=== PATIENT | female | born 1935 | race Caucasian/White ===

== ENCOUNTER 2016-12-16 10:17 | Outpatient (CLI) | payer MEDICARE, BC ==
[~2016-12-16 10:17] MED LIST: ACET325T53 PO; AMLO1TAB14 PO; ATEN50TA PO; DIGO125T PO; LEVO137T24 PO; LEVO500T15 PO
[2016-12-16 11:30] LABS: THYROID STIMULATING HORMONE 4.587 uIU/mL (0.358-3.74)
== END 2016-12-16 23:59 | disposition home or self-care (01) ==
LOC: US 10:17
PROVIDERS: ATTEND Internal Medicine Cardiovascular Disease
DX: E03.9 Hypothyroidism, unspecified (principal)
CPT/HCPCS: 36415; 76536-TC; 84436-TC; 84443-TC

== ENCOUNTER 2017-02-18 08:11 | Outpatient (CLI) | payer MEDICARE, BC ==
[2017-02-18 09:03] LABS: APPEARANCE,URINE SL CLOUDY (CLEAR); BILIRUBIN,URINE NEGATIVE (NEGATIVE); BLOOD, URINE NEGATIVE Ery/uL (NEGATIVE); COLOR,URINE YELLOW (YELLOW); KETONES,URINE NEGATIVE (NEGATIVE); LEUKOCYTE ESTERASE ,URINE NEGATIVE (NEGATIVE); NITRITE, URINE NEGATIVE (NEGATIVE); PROTEIN,URINE TRACE mg/dl (NEGATIVE); UGLUCOSE NEGATIVE (NEGATIVE); UROBILINOGEN,URINE 0.2 EU/dL (0.2)
[2017-02-18 09:04] LABS: BASOPHILS % (AUTO) 0.3 % (0.0-2.0); EOSINOPHILS # (AUTO) 0.2 /CMM (0.0-0.7); EOSINOPHILS % (AUTO) 2.2 % (0.0-6.0); HEMATOCRIT 39 % (33-45); HEMOGLOBIN 12.9 g/dL (11.5-14.8); LYMPHOCYTES # (AUTO) 2.8 /CMM (0.8-4.8); LYMPHOCYTES % (AUTO) 32.8 % (20.0-44.0); MEAN CORPUSCULAR HEMOGLOBIN 29 PG (26.0-33.0); MEAN CORPUSCULAR HGB CONC 33 g/dl (31.0-36.0); MEAN CORPUSCULAR VOLUME 90 fL (82-100); MONOCYTES # (AUTO) 0.6 /CMM (0.1-1.30); NEUTROPHILS # (AUTO) 4.9 /CMM (1.8-8.9); NEUTROPHILS % (AUTO) 57.7 % (43.0-81.0); PLATELET COUNT (AUTO) 257 /CMM (150-450); RDW COEFFICIENT OF VARIATION 14.7 (11.5-15.0); RED BLOOD CELL COUNT(AUTO) 4.38 MIL/uL (4.0-5.2); WHITE BLOOD COUNT (AUTO) 8.4 K/uL (4.3-11.0)
[2017-02-18 09:19] LABS: ADD URINE CULTURE NO; BACTERIA,URINE Rare /HPF (None Seen); HYALINE CASTS, URINE Rare /LPF (None Seen); RBC,URINE 0-2 /HPF (0-2); SQUAMOUS EPITHELIAL CELL,UR Few /HPF (None Seen); WBC,URINE 0-2 /HPF (0-3)
[2017-02-18 09:26] LABS: ALBUMIN 3.6 g/dL (3.4-5.0); BILIRUBIN,TOTAL 0.5 mg/dL (0.2-1.0); CALCIUM, SERUM 9.1 mg/dL (8.5-10.1); CREATININE 1.3 mg/dL (0.6-1.3); MAGNESIUM 1.7 mg/dL (1.8-2.4); POTASSIUM 3.9 mmol/L (3.5-5.1)
== END 2017-02-18 23:59 | disposition home or self-care (01) ==
LOC: LAB 08:11
PROVIDERS: ATTEND Internal Medicine
DX: E11.9 Type 2 diabetes mellitus without complications (principal); I10 Essential (primary) hypertension
CPT/HCPCS: 36415; 80053-TC; 80061-TC; 81000-TC; 83735-TC; 85025-TC

== ENCOUNTER 2017-07-16 08:12 | Outpatient (CLI) | payer MEDICARE, BC ==
[2017-07-16 08:59] LABS: DIGOXIN 0.53 ng/mL (0.90-2.00)
[2017-07-16 09:05] LABS: ALANINE AMINOTRANSFERASE 28 U/L (12-78); ALBUMIN 3.6 g/dL (3.4-5.0); ALKALINE PHOSPHATASE 47 U/L (46-116); ASPARTATE AMINOTRANSFERASE 19 U/L (15-37); BILIRUBIN,TOTAL 0.4 mg/dL (0.2-1.0); CALCIUM, SERUM 9.1 mg/dL (8.5-10.1); CARBON DIOXIDE 28 mmol/L (21-32); CHLORIDE 104 mmol/L (98-107); CREATININE 1.2 mg/dL (0.6-1.3); GLUCOSE 166 mg/dL (74-106); POTASSIUM 4.2 mmol/L (3.5-5.1); SODIUM SERUM 140 mmol/L (136-145); UREA NITROGEN, BLOOD 16 mg/dL (7-18)
[2017-07-16 14:16] LABS: THYROID STIMULATING HORMONE 8.705 uIU/mL (0.358-3.74)
== END 2017-07-16 23:59 | disposition home or self-care (01) ==
LOC: LAB 08:12
PROVIDERS: ATTEND Internal Medicine Cardiovascular Disease
DX: I48.91 Unspecified atrial fibrillation (principal); E03.9 Hypothyroidism, unspecified; I10 Essential (primary) hypertension; R53.83 Other fatigue
CPT/HCPCS: 36415; 80053-TC; 80162-TC; 84443-TC

== ENCOUNTER 2019-10-31 15:52 | Emergency (ER) | payer MEDICARE, BC ==
[~2019-10-31] VITALS: Ht 167.6 cm; Wt 85.7 kg
[~2019-10-31 15:52] MED LIST changes: -ACET325T53 PO; -AMLO1TAB14 PO; +AMLO1TAB39 PO; -ATEN50TA PO; +CARV3.12 PO; +CHLO25TA2 PO; -DIGO125T PO; +HYDR-4076 PO; +LEVO100T9 PO; -LEVO137T24 PO; -LEVO500T15 PO; +METF-440 PO; +SITA1TAB6 PO
--- NOTE | 2019-10-31 16:00 | NUR ---
PT BIB RA WITH A C/O LLE PAIN. PT STATED THAT IT WAS SUDDEN ONSET AND DENIES TRAUMA. PT IS AA&O X4. PT IS NON AMBULATORY DUE TO PAIN. PT WAS PLACED ON THE MONITOR AND CONTINUOUS PULSE OX. PT CHANGED INTO A GOWN AND PT'S PANTS WERE REMOVED. NO REDNESS OR EDEMA NOTED.
--- NOTE | 2019-10-31 16:15 | NUR ---
DR PATIÑO IS AT THE BEDSIDE WITH AN ULTRASOUND CHECKING PT'S LLE.
--- NOTE | 2019-10-31 17:10 | NUR ---
US TECH IS AT THE BEDSIDE.
--- NOTE | 2019-10-31 17:20 | NUR ---
PT PLACED ON A BEDPAN. APPROX 300 ML YELLOW URINE OUTPUT NOTED.
--- NOTE | 2019-10-31 17:38 | NUR ---
US FINISHED AT THE BEDSIDE.
--- NOTE | 2019-10-31 17:45 | NUR ---
PT AMBULATED TO THE BATHROOM WITH A SLOW STEADY GAIT. RADHA, EMT, WENT WITH THE PT IN CASE SHE NEEDED ASSISTANCE.
--- NOTE | 2019-10-31 17:50 | NUR ---
PT C/O LOWER BACK PAIN WITH AMBULATION. MD NOTIFIED.
--- NOTE | 2019-10-31 18:00 | NUR ---
called central supply for a walker.
[2019-10-31] MEDS ORDERED: IBUPROFEN 600 MG TABLET PO ONE ×2 (18:18→18:30)
--- NOTE | 2019-10-31 18:50 | NUR ---
Patient discharged to home in stable condition. Written and verbal after care instructions given. Patient verbalizes understanding of instruction. VSS.
--- NOTE | 2019-10-31 18:50 | NUR ---
PT AMBULATED WITH A WALKER TO THE BATHROOM. PT WENT TO THE CAR VIA .
[2019-10-31 19:07] VITALS: BP 134/75
== END 2019-10-31 19:08 | disposition home or self-care (01) ==
LOC: ER 16:05
DX: M79.662 Pain in left lower leg (principal); I10 Essential (primary) hypertension; E11.9 Type 2 diabetes mellitus without complications; E03.9 Hypothyroidism, unspecified; I48.91 Unspecified atrial fibrillation; Z79.899 Other long term (current) drug therapy; Z79.84 Long term (current) use of oral hypoglycemic drugs
CPT/HCPCS: 93971-TC

== ENCOUNTER 2021-01-28 21:19 | Emergency (ER) | payer MEDICARE, BC ==
--- NOTE | 2021-01-28 21:57 | NUR ---
CALLED FOR TRIAGE NO ANSWER
== END 2021-01-28 22:00 | disposition left against medical advice (07) ==
LOC: ER 21:23
DX: Z53.21 Procedure and treatment not carried out due to patient leaving prior to being seen by health care provider (principal)

== ENCOUNTER 2022-03-04 01:23 | Inpatient (IN) | payer BC, MEDICARE ==
[~2022-03-04] VITALS: Ht 162.6 cm; Wt 76.2 kg
--- NOTE | 2022-03-04 01:38 | NUR ---
PATIENT [id number] FROM [facility] C/O LOW 02 STAT ON RA. PATIENT IS A/O X 1, RR LABORED, 86% RA NOTED. PATIENT PLACED ON 4L NC 93%. PATIENT TAKEN TO ER BED 08. PATIENT CONNECTED TO CARDIAC AND POX MONITOR. TEMP NOTED AT 100.8.
--- NOTE | 2022-03-04 01:39 | NUR ---
F/C INSERTED DEGREE CLERK; DRAINING YELLOW URINE WELL.
--- NOTE | 2022-03-04 01:39 | NUR ---
GTUBE INTACT; PT MAINTAINED NPO & ASPIRATION PRECAUTIONS IN PLACE.
[2022-03-04] MEDS ORDERED: PIPERACILLIN /TAZOBACTAM 3.375 G VIAL IV ONE (01:42)
--- NOTE | 2022-03-04 01:42 | NUR ---
R HAND #20G S/L; PATENT AND INTACT. BLOOD AND URINE COLLECTED AND SENT TO LAB
--- NOTE | 2022-03-04 01:47 | NUR ---
COVID ANTIGEN SWAB COLLECTED AND SENT TO LAB
[2022-03-04] MEDS ORDERED: AZTREONAM 1 G VIAL ONE (01:49)
[2022-03-04] MEDS ORDERED: VANCOMYCIN 1 GM VIAL ONE (01:49)
[2022-03-04] MEDS ORDERED: DILTIAZEM HCL 25 MG IV ONE ×4 (01:50→23:02)
[2022-03-04 02:00] LABS: BASOPHILS % (AUTO) 0.1 % (0.0-2.0); EOSINOPHILS % (AUTO) 1.4 % (0.0-6.0); HEMATOCRIT 27 % (33-45); HEMOGLOBIN 8.7 g/dL (11.5-14.8); LYMPHOCYTES # (AUTO) 1.5 K/uL (0.8-4.8); LYMPHOCYTES % (AUTO) 14.8 % (20.0-44.0); MEAN CORPUSCULAR HGB CONC 32 g/dl (31.0-36.0); MEAN CORPUSCULAR VOLUME 93 fL (82-100); MONOCYTES # (AUTO) 0.8 K/uL (0.1-1.30); MONOCYTES % (AUTO) 8.6 % (2.0-12.0); NEUTROPHILS # (AUTO) 7.3 K/uL (1.8-8.9); NEUTROPHILS % (AUTO) 75.1 % (43.0-81.0); PLATELET COUNT (AUTO) 508 K/uL (150-450); WHITE BLOOD COUNT (AUTO) 9.8 K/uL (4.3-11.0)
[2022-03-04] MEDS ORDERED: PIPERACILLIN /TAZOBACTAM 3.375 G in IV D5W 50 ML IV ONE (02:00)
[2022-03-04] MEDS ORDERED: IV NS 0.9% 1,000 ML BAG IV ONE (02:00)
[2022-03-04] MEDS ORDERED: AZTREONAM 2 G in IV NS 0.9% 100 ML IV ONE (02:00)
[2022-03-04] MEDS ORDERED: VANCOMYCIN 1 GM in IV D5W 250 ML IV ONE (02:00)
[2022-03-04] MEDS ORDERED: DILTIAZEM HCL 50 MG IV IV ONE (02:00)
[2022-03-04 02:01] LABS: BILIRUBIN,URINE NEGATIVE (NEGATIVE); COLOR,URINE YELLOW (YELLOW); LEUKOCYTE ESTERASE ,URINE MODERATE (NEGATIVE); NITRITE, URINE NEGATIVE (NEGATIVE); PROTEIN,URINE 30 mg/dl (NEGATIVE); UGLUCOSE NEGATIVE (NEGATIVE); UROBILINOGEN,URINE 0.2 EU/dL (0.2)
[2022-03-04 02:25] LABS: CALCIUM, SERUM 8.5 mg/dL (8.5-10.1); CARBON DIOXIDE 30 mmol/L (21-32); CHLORIDE 104 mmol/L (98-107); CREATININE 1.2 mg/dL (0.6-1.3); POTASSIUM 5.1 mmol/L (3.5-5.1); SODIUM SERUM 139 mmol/L (136-145)
[2022-03-04 02:31] LABS: ALANINE AMINOTRANSFERASE 72 U/L (12-78); ALBUMIN 1.7 g/dL (3.4-5.0); ALKALINE PHOSPHATASE 110 U/L (46-116); ASPARTATE AMINOTRANSFERASE 54 U/L (15-37); BILIRUBIN,DIRECT 0.1 mg/dL (0.0-0.2); BILIRUBIN,TOTAL 0.3 mg/dL (0.2-1.0); TOTAL PROTEIN, SERUM 7.2 g/dL (6.4-8.2)
--- NOTE | 2022-03-04 02:31 | NUR ---
GLUCOSE 392
[2022-03-04 02:33] LABS: GLUCOSE 392 mg/dL (74-106); UREA NITROGEN, BLOOD 68 mg/dL (7-18)
--- NOTE | 2022-03-04 02:45 | NUR ---
INITIATED CARDIZEM DRIP @ 5MG/HR TO LAC #20G S/L BP 126/69, HR 103 AFIB. PT TOLERATING SIMPLE MASK @ 6LPM AT 95%. WILL CONTINUE TO MONITOR.
[2022-03-04] MEDS: DILTIAZEM HCL IV 125 MG in IV NS 0.9% 100 ML IV PRN ×2 (02:46→06:00)
[2022-03-04 03:47] LABS: BACTERIA,URINE Many /HPF (None Seen); RBC,URINE 81-100 /HPF (0-2); SQUAMOUS EPITHELIAL CELL,UR Few /HPF (None Seen); WBC,URINE 51-80 /HPF (0-3)
--- NOTE | 2022-03-04 05:09 | NUR ---
RECIEVED BED 115-1
--- NOTE | 2022-03-04 05:23 | NUR ---
MRSA SWAB COLLECTED AND SENT TO LAB. PATIENT'S BELONGINGS LIST DONE.
--- NOTE | 2022-03-04 05:58 | NUR ---
TITRATED CARDIZEM DRIP @ 10MG/HR TO LAC #20G S/L BP 143/71, HR 120 AFIB. PT TOLERATING O2 N/C @ 4LPM AT 98%. WILL CONTINUE TO MONITOR. BM NOTED. ADLS DONE & REPOSITIONED PT. PT KEPT CLEAN AND DRY.
[2022-03-04] MEDS: ENOXAPARIN SODIUM 40 MG/0.4 ML DISP.SYRIN SQ SCH (06:00)
[2022-03-04] MEDS ORDERED: ONDANSETRON HCL/PF 4 MG/2 ML VIAL IVP PRN (06:00)
[2022-03-04] MEDS ORDERED: DEXTROSE 50%-WATER 50 ML DISP.SYRIN IV PRN (06:00)
--- NOTE | 2022-03-04 06:12 | NUR ---
REPORT GIVEN TO RODRIGO HORNER RN FOR KIYA
[2022-03-04] MEDS ORDERED: CEFTRIAXONE 2 G in IV D5W 100 ML IV SCH (07:00)
[2022-03-04] MEDS ORDERED: NA P133E RC (07:13)
[2022-03-04] MEDS ORDERED: ATOR40TA GT (07:13)
[2022-03-04] MEDS ORDERED: MODAFINIL GT (07:13)
[2022-03-04] MEDS ORDERED: MAGN400O6 GT (07:13)
[2022-03-04] MEDS ORDERED: ACET-868 GT (07:13)
[2022-03-04] MEDS ORDERED: BISA10SU11 RC (07:13)
[2022-03-04] MEDS ORDERED: METO25TA20 GT (07:13)
[2022-03-04] MEDS ORDERED: ARGI1POW13 GT (07:13)
[2022-03-04] MEDS ORDERED: INSU100V7 SQ (07:13)
[2022-03-04] MEDS ORDERED: ASPI-1169 GT (07:13)
[2022-03-04] MEDS ORDERED: CLON0.1T GT (07:13)
[2022-03-04] MEDS ORDERED: ASCO-352 GT (07:13)
[2022-03-04] MEDS ORDERED: ZINC1CAP3 GT (07:13)
[2022-03-04] MEDS ORDERED: INSU100V27 SQ (07:13)
[2022-03-04] MEDS ORDERED: NUTR250L62 GT (07:13)
[2022-03-04] MEDS ORDERED: LISI20TA30 GT (07:13)
[2022-03-04] MEDS ORDERED: MULT-447 GT (07:13)
[2022-03-04] MEDS ORDERED: APIX2.5T GT (07:13)
[2022-03-04] MEDS ORDERED: DILT30TA14 GT (07:13)
[2022-03-04] MEDS ORDERED: AMIN30LI2 GT (07:13)
--- NOTE | 2022-03-04 07:19 | NUR ---
PT TRANPORTED TO TELE BED WITH ACLS PROTOCOLS IN PLACE. PT RECIEVED BY RN SOON.
--- NOTE | 2022-03-04 07:20 | NUR ---
RN NOTE PATIENT ARRIVED TO UNIT.
[2022-03-04] MEDS ORDERED: LEVOTHYROXINE SODIUM 100 MCG TABLET PO SCH (07:30)
--- NOTE | 2022-03-04 07:42 | NUR ---
RN OPENING NOTE RECEIVED PATIENT RESTING IN BED, RESPONSIVE TO LIGHT PAIN STIMULI, OPENS EYES. ON NC 4L WITH NOT SIGNS OF SOB OR DISTRESS. PATIENT IS ON CARDIZEM DRIP CURRENTLY AT 10MG.HR. PENDING EVALUATION FROM PROVIDER. SAFETY MEASURE IN PLACE, CALL LIGHT WITHIN REACH BED LOCKED IN THE LOWEST POSITION 2 SIDE RAILS UP.
[2022-03-04 08:00] VITALS: BP 131/57
[2022-03-04] MEDS ORDERED: CARVEDILOL 3.125 MG TABLET PO SCH (09:00)
[2022-03-04] MEDS ORDERED: LOSARTAN POTASSIUM 50 MG TABLET PO SCH (09:00)
[2022-03-04] MEDS ORDERED: AMLODIPINE BESYLATE 5 MG TABLET PO SCH (09:00)
[2022-03-04] MEDS: BLOOD SUGAR DIAGNOSTIC 1 EACH STRIP IN SCH ×4 (10:38→23:17)
[2022-03-04] MEDS: INSULIN REGULAR, HUMAN 100 UNIT/ML 3 ML VIAL SQ PRN ×4 (10:39→23:28)
[2022-03-04 11:14] LABS: THYROID STIMULATING HORMONE 10.847 uIU/mL (0.358-3.74)
[2022-03-04 11:15] LABS: IRON, SERUM 37 ug/dl (50-175); TOTAL IRON BINDING CAPACITY 241 ug/dl (250-450)
[2022-03-04 11:34] LABS: FERRITIN 145 ng/mL (8-388)
[2022-03-04 11:44] LABS: MAGNESIUM 2.4 mg/dL (1.8-2.4)
[2022-03-04 12:00] VITALS: BP 142/77
[2022-03-04] MEDS ORDERED: GLUCERNA 1.5 1,000 ML BOTTLE NG PRN (12:00)
[2022-03-04] MEDS: DILTIAZEM HCL IV 125 MG in IV NS 0.9% 100 ML IV SCH ×2 (12:15→23:16)
[2022-03-04] MEDS: PIPERACILLIN /TAZOBACTAM 3.375 G in IV D5W 50 ML IV SCH ×3 (13:04→23:25)
[2022-03-04] MEDS: IV NS 0.9% 1,000 ML IV PRN (13:04)
[2022-03-04] MEDS ORDERED: DIGOXIN INJ 0.5 MG/2 ML AMPUL IV ONE ×3 (13:30→19:30)
[2022-03-04] MEDS ORDERED: GLUCERNA 1.2 1,000 ML BOTTLE NG PRN (13:30)
--- NOTE | 2022-03-04 13:30 | NUR ---
RN NOTE INFORMED DR FORBES PATIENTS HR IS 130-140BPM. PATIENT ON CARDIZEM 5ML/HR. RECEIVED ORDER FOR DIGOXIN 0.25IV NOW AND Q6HR X 3 DOSES. ORDERS PLACED.
[2022-03-04] MEDS: DIGOXIN INJ 0.5 MG/2 ML AMPUL IV SCH ×2 (13:58→19:56)
[2022-03-04] MEDS: PROSOURCE / PROSTAT (PYXIS) 30 ML UDC GT SCH ×2 (14:09→17:22)
[2022-03-04] MEDS: GLUCERNA 1.2 1,000 ML BOTTLE NG PRN (15:16)
[2022-03-04 16:00] VITALS: BP 100/56
--- NOTE | 2022-03-04 18:53 | NUR ---
RN CLOSING NOTE PATIENT RESTING IN BED, RESPONSIVE TO LIGHT PAIN STIMULI, OPENS EYES. ON NC 3L WITH NOT SIGNS OF SOB OR DISTRESS. PATIENT IS ON CARDIZEM DRIP CURRENTLY AT 5MG/HR AND NS RUINING. ON LEFT UPPER ARM MIDLINE. SAFETY MEASURE IN PLACE, CALL LIGHT WITHIN REACH BED LOCKED IN THE LOWEST POSITION 2 SIDE RAILS UP. WILL ENDORSE TO NIGHT NURSE FOR KIYA.
[2022-03-04 20:00] VITALS: BP 133/75
--- NOTE | 2022-03-04 20:00 | NUR ---
SIRI RN NOTE PT IN BED AWAKE, NON VERBAL. NO SOB, NO DISTRESS OR DISCOMFORT NOTED. NO S/S OF PAIN NOTED. ON O2 3L VIA N/C O2 SAT 98%. ON TELE HR 104 A FIB CONTROLLED OCC. PVC'S. F/C INTACT AND PATENT DRAINING YELLOWISH COLOR URINE. GTF GLUCERNA INFUSING AT 30 ML/HR, 0 ML RESIDUAL NOTED. GERRY MIDLINE # 18 G LAT AC #18 G, AND RT HAND #18 G SL INTACT AND PATENT, NO S/S OF INFILTRATION NOTED. CARDIZEM INFUSING AT 5 MG/HR AND NS @ 75 ML/HR INFUSING WELL. ALL NEEDS ATTENDED, KEPT HER DRY AND CLEAN. REPOSITION HER Q2H, SIDE RAILS UP X 3 AND CALL LIGHT WITHIN REACH. VSS. CONTINUE TO MONITOR HER.
[2022-03-05] VITALS: BP 145/76
[2022-03-05] MEDS: DIGOXIN INJ 0.5 MG/2 ML AMPUL IV SCH (02:25)
[2022-03-05 04:00] VITALS: BP 139/62
[2022-03-05] MEDS: IV NS 0.9% 1,000 ML IV PRN ×2 (04:31→20:57)
[2022-03-05] MEDS: PIPERACILLIN /TAZOBACTAM 3.375 G in IV D5W 50 ML IV SCH ×4 (05:52→23:25)
[2022-03-05] MEDS: ENOXAPARIN SODIUM 40 MG/0.4 ML DISP.SYRIN SQ SCH (05:56)
--- NOTE | 2022-03-05 06:33 | NUR ---
SIRI RN NOTE PT IN BED ASLEEP, AROUSABLE. NO DISTRESS OR DISCOMFORT NOTED. IVF INFUSING WELL, NO S /S OF INFILTRATION NOTED. ALL NEEDS ATTENDED. KEPT HER DRY AND CLEAN. REPOSITION HER Q2H, KEPT HER DRY AND CLEAN. WILL ENDORSE TO DAY SHIFT NURSE FOR CONTINUE TO CARE.
--- NOTE | 2022-03-05 07:15 | NUR ---
RN OPENING NOTE RECEIVED PATIENT RESTING IN BED, RESPONSIVE TO LIGHT PAIN STIMULI, OPENS EYES. ON NC 3L WITH NO SIGNS OF SOB OR DISTRESS. PATIENT IS ON CARDIZEM DRIP CURRENTLY AT 5MG/HR. SAFETY MEASURES IN PLACE, CALL LIGHT WITHIN REACH BED LOCKED IN THE LOWEST POSITION 2 SIDE RAILS UP. ON G TUBE FEEDING GLUCERNA AT 30ML/HR AND TOLERATING WELL EVIDENCED BY LOW RESIDUAL. GERRY MIDLINE IN PLACE . LEFT 18 GAUGE AC IV IN PLACE, ALONG WITH RIGHT 18 GAUGE HAND IV NO SIGNS OF INFILTRATION. WILL CONTINUE PLAN OF CARE AND ANTICIPATE NEEDS.
[2022-03-05 07:16] LABS: BILIRUBIN,TOTAL 0.4 mg/dL (0.2-1.0); CALCIUM, SERUM 8.5 mg/dL (8.5-10.1); MAGNESIUM 2.2 mg/dL (1.8-2.4); PHOSPHORUS 4.7 mg/dL (2.5-4.9); POTASSIUM 4.5 mmol/L (3.5-5.1); TOTAL PROTEIN, SERUM 6.1 g/dL (6.4-8.2)
[2022-03-05 07:21] LABS: ALBUMIN 1.4 g/dL (3.4-5.0)
[2022-03-05 07:48] LABS: BASOPHILS % (AUTO) 0.2 % (0.0-2.0); EOSINOPHILS % (AUTO) 3.4 % (0.0-6.0); HEMATOCRIT 23 % (33-45); HEMOGLOBIN 7.6 g/dL (11.5-14.8); LYMPHOCYTES # (AUTO) 1.4 K/uL (0.8-4.8); LYMPHOCYTES % (AUTO) 17.4 % (20.0-44.0); MEAN CORPUSCULAR HGB CONC 33 g/dl (31.0-36.0); MEAN CORPUSCULAR VOLUME 91 fL (82-100); MONOCYTES # (AUTO) 0.9 K/uL (0.1-1.30); MONOCYTES % (AUTO) 10.7 % (2.0-12.0); NEUTROPHILS # (AUTO) 5.5 K/uL (1.8-8.9); NEUTROPHILS % (AUTO) 68.3 % (43.0-81.0); PLATELET COUNT (AUTO) 430 K/uL (150-450); RED BLOOD CELL COUNT(AUTO) 2.54 MIL/uL (4.0-5.2); WHITE BLOOD COUNT (AUTO) 8.1 K/uL (4.3-11.0)
[2022-03-05 08:00] VITALS: BP 128/67
[2022-03-05] MEDS: INSULIN REGULAR, HUMAN 100 UNIT/ML 3 ML VIAL SQ PRN ×4 (08:05→21:23)
[2022-03-05] MEDS: BLOOD SUGAR DIAGNOSTIC 1 EACH STRIP IN SCH ×4 (08:12→21:17)
[2022-03-05] MEDS: PROSOURCE / PROSTAT (PYXIS) 30 ML UDC GT SCH ×3 (08:12→17:39)
[2022-03-05] MEDS ORDERED: Z GUARD REMEDY 4 OZ OINT TP PRN (08:30)
--- NOTE | 2022-03-05 08:35 | NUR ---
WOUND CARE CONSULT: PT PRESENTS WITH SACRAL UNSTAGEABLE PRESSURE ULCER WHICH EXTENDS TO BILATERAL BUTTOCKS, PRESENT ON ADMISSION. PT ALSO NOTED TO HAVE RT HEEL SCAR, PRESENT ON ADMISSION. RECOMMENDATIONS MADE FOR SKIN PROTECTION. DISCUSSED WITH NURSING STAFF. SURGICAL CONSULT CALLED TO DR WALLIS. FIRST STEP [facility] IS ON ORDER. IN AGREEMENT WITH PLAN OF CARE. Addendum: 03/05/22 at 0836 by IVY MORALES Amended: Links added. Addendum: 03/05/22 at 0838 by IVY KHANU ADDITIONAL: LEFT CLAVICLE WOUND ALSO NOTED TO BE PRESENT ON ADMISSION. SURGICAL CONSULT IN PLACE.
[2022-03-05] MEDS: CARVEDILOL 12.5 MG TABLET PO SCH ×2 (09:37→20:51)
[2022-03-05] MEDS: Z GUARD REMEDY 4 OZ OINT TP SCH (09:45)
[2022-03-05 12:00] VITALS: BP 121/61
[2022-03-05] MEDS: DIGOXIN 0.25 MG TABLET PO SCH (12:12)
[2022-03-05] MEDS ORDERED: SILVER NITRATE APPLICATOR 1 EA BOX TP SCH (14:30)
[2022-03-05] MEDS ORDERED: LIDOCAINE 1% INJ 50 ML MDV IJ ONE (14:30)
[2022-03-05] MEDS: DAKINS QUARTER STRENGTH (0.125%) 480 ML BOTTLE TOP SCH (15:30)
[2022-03-05] MEDS: GLUCERNA 1.2 1,000 ML BOTTLE NG PRN (15:42)
[2022-03-05 16:00] VITALS: BP 118/59
[2022-03-05] MEDS: VANCOMYCIN HCL 0.75 GM in IV D5W 250 ML IV SCH (16:43)
--- NOTE | 2022-03-05 19:19 | NUR ---
RN CLOSING NOTE PATIENT RESTING IN BED, RESPONSIVE TO LIGHT PAIN STIMULI, OPENS EYES. ON NC 3L WITH NO SIGNS OF SOB OR DISTRESS. SAFETY MEASURES IN PLACE, CALL LIGHT WITHIN REACH BED LOCKED IN THE LOWEST POSITION 2 SIDE RAILS UP. ON G TUBE FEEDING GLUCERNA AT 30ML/HR AND TOLERATING WELL EVIDENCED BY LOW RESIDUAL. GERRY MIDLINE IN PLACE . LEFT 18 GAUGE AC IV IN PLACE, ALONG WITH RIGHT 18 GAUGE HAND IV NO SIGNS OF INFILTRATION. WILL ENDORSE TO ONCOMING NURSE FOR KIYA.
--- NOTE | 2022-03-05 19:30 | NUR ---
FARMWORKER DAIRY OPENING NOTE RECEIVED PATIENT IN BED, NON VERBAL. RESPONSIVE TO LIGHT PAIN STIMULI, OPENS EYES. PT ON O2 NC 3L WITH NO SIGNS OF SOB OR ACUTE DISTRESS NOTED AT THIS TIME. ON TELE MONITOR SHOWING A-FIB CONTROLLED WITH OCCASIONAL PVCs. IV ACCESS NOTED AT GERRY MIDLINE, LEFT AC 18 GAUGE AND RIGHT HAND 18 GAUGE WITH NO SIGNS OF INFILTRATION. ON G TUBE FEEDING, GLUCERNA AT 30ML/HR AND TOLERATING WELL. ALL SAFETY MEASURES IN PLACE, CALL LIGHT WITHIN REACH. BED LOCKED IN LOWEST POSITION, 2 SIDE RAILS UP AND BED ALARM ON. WILL CONTINUE TO MONITOR THE PT.
[2022-03-05 20:00] VITALS: BP 141/68
[2022-03-06] VITALS: BP 143/67
[2022-03-06] MEDS: VANCOMYCIN HCL 0.75 GM in IV D5W 250 ML IV SCH ×2 (03:36→15:38)
[2022-03-06 04:00] VITALS: BP 144/65
[2022-03-06] MEDS: PIPERACILLIN /TAZOBACTAM 3.375 G in IV D5W 50 ML IV SCH ×4 (05:04→23:26)
[2022-03-06] MEDS: ENOXAPARIN SODIUM 40 MG/0.4 ML DISP.SYRIN SQ SCH (05:38)
--- NOTE | 2022-03-06 05:38 | NUR ---
RN NOTE PT IS SCHEDULED FOR WOUND DEBRIDEMENT TODAY. WITHHELD LOVENOX DUE 6AM TODAY PER CHARGE NURSE RODRIGO'S ADVICE. HGB IS 7.6.
[2022-03-06 06:49] LABS: BASOPHILS % (AUTO) 0.4 % (0.0-2.0); EOSINOPHILS % (AUTO) 3.9 % (0.0-6.0); HEMATOCRIT 24 % (33-45); HEMOGLOBIN 7.9 g/dL (11.5-14.8); LYMPHOCYTES # (AUTO) 1.4 K/uL (0.8-4.8); LYMPHOCYTES % (AUTO) 17.7 % (20.0-44.0); MEAN CORPUSCULAR HGB CONC 33 g/dl (31.0-36.0); MEAN CORPUSCULAR VOLUME 93 fL (82-100); MONOCYTES # (AUTO) 0.7 K/uL (0.1-1.30); MONOCYTES % (AUTO) 9.2 % (2.0-12.0); NEUTROPHILS # (AUTO) 5.3 K/uL (1.8-8.9); NEUTROPHILS % (AUTO) 68.8 % (43.0-81.0); PLATELET COUNT (AUTO) 439 K/uL (150-450); RED BLOOD CELL COUNT(AUTO) 2.62 MIL/uL (4.0-5.2); WHITE BLOOD COUNT (AUTO) 7.7 K/uL (4.3-11.0)
--- NOTE | 2022-03-06 06:56 | NUR ---
MMA FIGHTER CLOSING NOTE NO SIGNIFICANT CHANGE THROUGHOUT THE SHIFT. PATIENT IN BED, SLEEPING MOST OF THE TIME, NON VERBAL. RESPONSIVE TO LIGHT PAIN STIMULI, OPENS EYES. PT ON O2 NC 3L WITH NO SIGNS OF SOB OR ACUTE DISTRESS NOTED. ON TELE MONITOR SHOWING A-FIB CONTROLLED WITH OCCASIONAL PVCs. IV ACCESS NOTED AT GERRY MIDLINE, LEFT AC 18 GAUGE AND RIGHT HAND 18 GAUGE WITH NO SIGNS OF INFILTRATION. ON G TUBE FEEDING, GLUCERNA AT 30ML/HR AND TOLERATING WELL. ALL DUE MEDS GIVEN. ALL NEEDS ATTENDED TO. ALL SAFETY MEASURES IMPLEMENTED. CALL LIGHT WITHIN REACH. BED LOCKED IN LOWEST POSITION, 2 SIDE RAILS UP AND BED ALARM ON. WILL ENDORSE TO AM SHIFT NURSE FOR KIYA.
[2022-03-06 07:15] LABS: BILIRUBIN,TOTAL 0.4 mg/dL (0.2-1.0); CREATININE 1.1 mg/dL (0.6-1.3); PHOSPHORUS 3.8 mg/dL (2.5-4.9); POTASSIUM 4.1 mmol/L (3.5-5.1); TOTAL PROTEIN, SERUM 6.3 g/dL (6.4-8.2)
[2022-03-06 07:24] LABS: ALBUMIN 1.4 g/dL (3.4-5.0)
--- NOTE | 2022-03-06 07:25 | NUR ---
RN OPENING NOTE RECEIVED PATIENT IN BED, RESTING, NON VERBAL. RESPONSIVE TO LIGHT PAIN STIMULI, OPENS EYES. PT ON O2 NC 3LPM TOLERATING WELL WITH SATURATION OF 96%. BREATHING EVEN AND UNLABORED. WITH NO SIGNS OF SOB OR ACUTE DISTRESS NOTED AT THIS TIME. IV ACCESS NOTED AT GERRY MIDLINE, LEFT AC 18 GAUGE AND RIGHT HAND 18 GAUGE WITH NO SIGNS OF INFILTRATION. ON G TUBE FEEDING, GLUCERNA AT 30ML/HR AND TOLERATING WELL, NO RESIDUAL NOTED AND POSITIVE PLACEMENT NOTED. ALL SAFETY MEASURES IN PLACE, CALL LIGHT WITHIN REACH. BED LOCKED IN LOWEST POSITION, 2 SIDE RAILS UP AND BED ALARM ON. WILL CONTINUE TO MONITOR AND ASSESS PATIENT FOR CHANGES DURING SHIFT.
[2022-03-06] MEDS: INSULIN REGULAR, HUMAN 100 UNIT/ML 3 ML VIAL SQ PRN ×4 (07:54→22:34)
[2022-03-06 07:57] LABS: CALCIUM, SERUM 8.7 mg/dL (8.5-10.1); MAGNESIUM 2.1 mg/dL (1.8-2.4)
[2022-03-06 08:00] VITALS: BP 160/76
[2022-03-06] MEDS: Z GUARD REMEDY 4 OZ OINT TP SCH (08:53)
[2022-03-06] MEDS: PROSOURCE / PROSTAT (PYXIS) 30 ML UDC GT SCH ×3 (08:53→17:23)
[2022-03-06] MEDS: DAKINS QUARTER STRENGTH (0.125%) 480 ML BOTTLE TOP SCH (08:54)
[2022-03-06] MEDS: CARVEDILOL 12.5 MG TABLET PO SCH ×3 (08:54→21:36)
[2022-03-06] MEDS: BLOOD SUGAR DIAGNOSTIC 1 EACH STRIP IN SCH ×4 (08:55→22:24)
[2022-03-06 12:00] VITALS: BP 137/64
[2022-03-06] MEDS: DIGOXIN 0.25 MG TABLET PO SCH (12:04)
[2022-03-06] MEDS: IV NS 0.9% 1,000 ML IV PRN (15:06)
[2022-03-06] MEDS: GLUCERNA 1.2 1,000 ML BOTTLE NG PRN (15:38)
--- NOTE | 2022-03-06 15:54 | NUR ---
RN NOTE WAS SEEN BY ADAM ROGEL FOR WOUND DEBRIDEMENT. PATIENT TOLERATED PROCEDURE WELL.
[2022-03-06 16:00] VITALS: BP 142/71
--- NOTE | 2022-03-06 18:47 | NUR ---
RN CLOSING NOTE NO SIGNIFICANT CHANGES THROUGHOUT SHIFT, PATIENT REMAINS ON STABLE CONDITION. PATIENT IN BED, RESTING, NON VERBAL. PT ON O2 NC 3LPM TOLERATING WELL. BREATHING EVEN AND UNLABORED. WITH NO SIGNS OF SOB OR ACUTE DISTRESS NOTED AT THIS TIME. IV ACCESS NOTED AT GERRY MIDLINE INFUSING NS AT 75ML/HR, LEFT AC 18 GAUGE AND RIGHT HAND 18 GAUGE WITH NO SIGNS OF INFILTRATION. ON G TUBE FEEDING, GLUCERNA AT 30ML/HR AND TOLERATING WELL, NO RESIDUAL NOTED AND POSITIVE PLACEMENT NOTED. ALL DUE MEDS GIVEN ORDERED. WOUND CARE RENDERED DURING WOUND DEBRIDEMENT PROCEDURE, TOLERATED WELL. KEPT PATIENT CLEAN DRY AND COMFORTABLE. ALL NEEDS ANTICIPATED. ALL SAFETY MEASURES IN PLACE, CALL LIGHT WITHIN REACH. BED LOCKED IN LOWEST POSITION, 2 SIDE RAILS UP AND BED ALARM ON. WILL ENDORSE TO IMAGE PROCESSING ENGINEER NURSE FOR CONTINUITY OF CARE.
--- NOTE | 2022-03-06 19:15 | NUR ---
RN NOTES: RECEIVED ASLEEP ON BED, NON VERBAL,ON 02 AT 3L/MIN VIA NASAL CANNULA,ON TELE MONITOR A-FIB RATE-66, NO SIGN OF PAIN OR DISCOMFORT,NO SIGN OF RESPIRATORY DISTRESS, G-TUBE IN SITE, WITH FEEDING ONGOING OF GLUCERNA AT 30 ML/HR, ASPIRATION PRECAUTION OBSERVED, PRESENCE OF IV LINE ON THE GERRY MID LINE G#18 WITH IVF OF NS AT 75 ML/HR ON GOING, OTHER LINE: RAC G#18 AND RH G#18, ON INSULIN SLIDING SCALE, FRANCISCO CATH IN SITE, DRAINING INTO YELLOWISH COLORED URINE AT 100 CC LEVEL, CALL LIGHT WITHIN EASY REACH, FALL AND SAFETY AND ASPIRATION PRECAUTION OBSERVED.
[2022-03-06 20:00] VITALS: BP 160/78
--- NOTE | 2022-03-06 22:05 | NUR ---
RN NOTES: -MEDICATION SCANNED BP-160/78 TN-80 AND WAS ABOUT TO GIVE THE PATIENT. -RN/CHARGE NURSE SAID DO NOT GIVE PATIENT HEART RATE IN THE TELE MONITOR DROP TO 30'S, V/S RE-CHECKED BP-155/76, HR, SLOWLY INCREASE UP TO 50'S CN NOTIFIED DR. RODRIGUEZ. -ORAL SUCTION DONE.
--- NOTE | 2022-03-06 22:10 | NUR ---
2210 Noted patient with long pauses on her monitor technician with HR dropping to 20s. Dr. Martinez notified with order to hold Coreg and Digoxin order. Order noted and carried out. Patient awake and responsive no signs of distress. Vital signs taken as follows BP 155/76 HR 70s controlled Afib, O2 sat 97% on 4liters, RR 21. Will continue to monitor patient.
[2022-03-07] VITALS: BP 173/80
[2022-03-07] MEDS: VANCOMYCIN HCL 0.75 GM in IV D5W 250 ML IV SCH (03:07)
[2022-03-07 04:00] VITALS: BP 163/72
[2022-03-07] MEDS: PIPERACILLIN /TAZOBACTAM 3.375 G in IV D5W 50 ML IV SCH ×2 (05:13→12:24)
[2022-03-07] MEDS: IV NS 0.9% 1,000 ML IV PRN (05:28)
--- NOTE | 2022-03-07 05:29 | NUR ---
RN NOTES: IVF CONSUMED, NEW BOTTLE STARTED OF NS AT 75 ML/HR, MORE ALERT, RESPONDING TO CONVERSATION BY GIVING EYE CONTACT, NO SIGN OF RESPIRATORY DISCOMFORT.
[2022-03-07] MEDS: ENOXAPARIN SODIUM 40 MG/0.4 ML DISP.SYRIN SQ SCH (06:30)
[2022-03-07 06:55] LABS: CALCIUM, SERUM 8.6 mg/dL (8.5-10.1); CARBON DIOXIDE 26 mmol/L (21-32); CHLORIDE 113 mmol/L (98-107); CREATININE 0.9 mg/dL (0.6-1.3); GLUCOSE 213 mg/dL (74-106); POTASSIUM 3.8 mmol/L (3.5-5.1); SODIUM SERUM 145 mmol/L (136-145); UREA NITROGEN, BLOOD 34 mg/dL (7-18)
--- NOTE | 2022-03-07 07:30 | NUR ---
RN NOTES PT FOUND SEMI FOWLERS DISPLAYING NO S/S OF DISTRESS, FLACC = 0 AND BREATHING IS EVEN AND UNLABORED ON 3L O2 NC. PEG RESIDUAL ~ 20 ML. L UA ML IS PATIENT AND INTACT. FRANCISCO CATH BELOW PATIENT DRAINING BY GRAVITY. RN WILL MONITOR AND TREAT THROUGHOUT SHIFT. SAFETY MEASURES IN PLACE, BED LOCKED AND IN LOWEST POSITION, SIDE RAILS UPX2, CALL LIGHT WITHIN REACH, BED ALARM ARMED.
[2022-03-07] MEDS: BLOOD SUGAR DIAGNOSTIC 1 EACH STRIP IN SCH ×4 (07:36→21:26)
--- NOTE | 2022-03-07 07:40 | NUR ---
RN NOTES: PATIENT IS MORE AWAKE NOW, MAKING SOUND AND OPENING HER EYES WHEN HER NAME IS CALLED, ORAL SUCTION DONE, LATEST BP-163/72, COREG AND DIGOXIN ON HOLD, SKIN TREATMENT DONE, REPOSITIONED AND OFF LOADING DONE. -NO SIGN OF LABORED BREATHING, ENDORSED FOR CONTINUITY OF CARE.
[2022-03-07 08:00] VITALS: BP 167/72
[2022-03-07] MEDS: Z GUARD REMEDY 4 OZ OINT TP SCH (09:28)
[2022-03-07] MEDS: DAKINS QUARTER STRENGTH (0.125%) 480 ML BOTTLE TOP SCH (09:28)
[2022-03-07] MEDS: PROSOURCE / PROSTAT (PYXIS) 30 ML UDC GT SCH ×3 (09:28→16:38)
[2022-03-07] MEDS: INSULIN REGULAR, HUMAN 100 UNIT/ML 3 ML VIAL SQ PRN ×4 (09:29→21:21)
[2022-03-07] MEDS ORDERED: FUROSEMIDE 20 MG/2 ML VIAL IV ONE (09:30)
[2022-03-07 12:00] VITALS: BP 181/75
[2022-03-07] MEDS: hydrALAZINE HCL 50 MG TABLET PO SCH ×2 (12:09→21:04)
[2022-03-07 16:00] VITALS: BP 100/69
[2022-03-07] MEDS: GLUCERNA 1.2 1,000 ML BOTTLE NG PRN (16:38)
[2022-03-07] MEDS: VANCOMYCIN 1.25 GM in IV D5W 250 ML IV SCH (16:38)
--- NOTE | 2022-03-07 19:30 | NUR ---
RN NOTES PT FOUND SEMI FOWLERS DISPLAYING NO S/S OF DISTRESS, FLACC = 0, HOB = 40 DEGREES AND BREATHING IS EVEN AND UNLABORED ON 3L O2 NC. PEG RESIDUAL IMPROVED, > 5 ML. L UA ML IS PATIENT AND INTACT. FRANCISCO CATH BELOW PATIENT DRAINING BY GRAVITY. WOUND CARE DONE. SBAR AND REPORT GIVEN TO COMPUTER TECHNICAL SUPPORT SPECIALIST RN, ALL QUESTIONS ANSWERED. SAFETY MEASURES IN PLACE, BED LOCKED AND IN LOWEST POSITION, SIDE RAILS UPX2, CALL LIGHT WITHIN REACH, BED ALARM ARMED. PT ENDORSED IN STABLE CONDITION FOR KIYA.
--- NOTE | 2022-03-07 19:58 | NUR ---
SASH FINISHER OPENING NOTE RECEIVED PATIENT IN BED SLEEPING, NON VERBAL. RESPONSIVE TO TOUCH AND VOICE, OPENS EYES. PT ON O2 NC 3LPM TOLERATING WELL WITH SATURATION OF 97%. BREATHING EVEN AND UNLABORED. WITH NO SIGNS OF SOB OR ACUTE DISTRESS NOTED AT THIS TIME. IV ACCESS NOTED AT GERRY MIDLINE, LEFT AC 18 GAUGE AND RIGHT HAND 18 GAUGE WITH NO SIGNS OF INFILTRATION. ON G TUBE FEEDING, GLUCERNA AT 30ML/HR AND TOLERATING WELL, NO RESIDUAL NOTED AND POSITIVE PLACEMENT NOTED. ALL SAFETY MEASURES IN PLACE, CALL LIGHT WITHIN REACH. BED LOCKED IN LOWEST POSITION, ALARM ON. WILL CONTINUE TO MONITOR THROUGH OUT THE SHIFT.
[2022-03-07 20:00] VITALS: BP 175/81
[2022-03-07] MEDS: NITROGLYCERIN 30 GM TUBE TP SCH (21:04)
--- NOTE | 2022-03-07 21:20 | NUR ---
RN NOTE BS CHECKED AT 151 MG/DL, 2 "U" INSULIN GIVEN PER SLIDING SCALE.
[2022-03-08] VITALS: BP 161/81
[2022-03-08 04:00] VITALS: BP 160/85
[2022-03-08] MEDS: hydrALAZINE HCL 50 MG TABLET PO SCH ×3 (06:06→22:25)
[2022-03-08] MEDS: ENOXAPARIN SODIUM 40 MG/0.4 ML DISP.SYRIN SQ SCH (06:10)
--- NOTE | 2022-03-08 07:02 | NUR ---
TECHNICAL SUPPORT 1 SOFTWARE ENGINEER CLOSING NOTE PATIENT IN BED SLEEPING, NON VERBAL. RESPONSIVE TO TOUCH AND VOICE, OPENS EYES. PT ON O2 NC 3LPM TOLERATING WELL WITH SATURATION OF 97%. BREATHING EVEN AND UNLABORED.ON TELEMONITORING CURRENTLY READING SR AT 90'S, IV ACCESS AT GERRY MIDLINE, LEFT AC 18 GAUGE, NO SIGNS OF INFILTRATION. ON G TUBE FEEDING, GLUCERNA AT 30ML/HR AND TOLERATING WELL, NO RESIDUAL NOTED AND POSITIVE PLACEMENT NOTED.ALL DUE MEDS GIVEN KEPT DRY AND CLEAN, ALL SAFETY MEASURES IN PLACE, CALL LIGHT WITHIN REACH. BED LOCKED IN LOWEST POSITION, ALARM ON. WILL ENDORSE TO AM SHIFT NURSE.
[2022-03-08 07:03] LABS: BASOPHILS % (AUTO) 0.3 % (0.0-2.0); EOSINOPHILS % (AUTO) 2.7 % (0.0-6.0); HEMATOCRIT 26 % (33-45); HEMOGLOBIN 8.2 g/dL (11.5-14.8); LYMPHOCYTES # (AUTO) 1.7 K/uL (0.8-4.8); LYMPHOCYTES % (AUTO) 16.9 % (20.0-44.0); MEAN CORPUSCULAR HGB CONC 32 g/dl (31.0-36.0); MEAN CORPUSCULAR VOLUME 94 fL (82-100); MONOCYTES # (AUTO) 0.8 K/uL (0.1-1.30); MONOCYTES % (AUTO) 8.2 % (2.0-12.0); NEUTROPHILS # (AUTO) 7.3 K/uL (1.8-8.9); NEUTROPHILS % (AUTO) 71.9 % (43.0-81.0); PLATELET COUNT (AUTO) 477 K/uL (150-450); RED BLOOD CELL COUNT(AUTO) 2.75 MIL/uL (4.0-5.2); WHITE BLOOD COUNT (AUTO) 10.1 K/uL (4.3-11.0)
--- NOTE | 2022-03-08 07:05 | NUR ---
AIRCRAFT BODY REPAIRER OPENING NOTE RECEIVED PATIENT IN BED SLEEPING, NON VERBAL. RESPONSIVE TO TOUCH AND VOICE, OPENS EYES. PT ON O2 NC 3LPM TOLERATING WELL WITH SATURATION OF 97%. BREATHING EVEN AND UNLABORED. WITH NO SIGNS OF SOB OR ACUTE DISTRESS NOTED AT THIS TIME. IV ACCESS NOTED AT GERRY MIDLINE, LEFT AC 18 GAUGE WITH NO SIGNS OF INFILTRATION. ON G TUBE FEEDING, GLUCERNA AT 30ML/HR AND TOLERATING WELL, NO RESIDUAL NOTED AND POSITIVE PLACEMENT NOTED. ALL SAFETY MEASURES IN PLACE, CALL LIGHT WITHIN REACH. BED LOCKED IN LOWEST POSITION, ALARM ON. WILL MONITOR PT
[2022-03-08 07:29] LABS: CALCIUM, SERUM 9.1 mg/dL (8.5-10.1); CARBON DIOXIDE 25 mmol/L (21-32); CHLORIDE 112 mmol/L (98-107); CREATININE 1.3 mg/dL (0.6-1.3); GLUCOSE 195 mg/dL (74-106); POTASSIUM 3.4 mmol/L (3.5-5.1); SODIUM SERUM 146 mmol/L (136-145); UREA NITROGEN, BLOOD 40 mg/dL (7-18)
[2022-03-08 08:00] VITALS: BP 138/71
[2022-03-08] MEDS: BLOOD SUGAR DIAGNOSTIC 1 EACH STRIP IN SCH ×4 (08:04→22:36)
[2022-03-08] MEDS: INSULIN REGULAR, HUMAN 100 UNIT/ML 3 ML VIAL SQ PRN ×4 (08:08→22:37)
[2022-03-08] MEDS: PROSOURCE / PROSTAT (PYXIS) 30 ML UDC GT SCH ×3 (09:09→16:08)
[2022-03-08] MEDS: NITROGLYCERIN 30 GM TUBE TP SCH ×2 (09:10→22:25)
[2022-03-08] MEDS: DAKINS QUARTER STRENGTH (0.125%) 480 ML BOTTLE TOP SCH (09:41)
[2022-03-08] MEDS: Z GUARD REMEDY 4 OZ OINT TP SCH (09:42)
[2022-03-08] MEDS: POTASSIUM CHLORIDE 20 MEQ TAB.PRT.SR PO SCH ×3 (10:18→12:40)
[2022-03-08] MEDS: FUROSEMIDE 40 MG/4 ML VIAL IV SCH ×2 (10:18→12:40)
[2022-03-08 12:00] VITALS: BP 134/81
--- NOTE | 2022-03-08 12:26 | NUR ---
RN NOTES: PT WITH 1 EPISODE OF VOMITING, HELD FEEDING, ZOFRAN IV GIVEN WILL MONITOR PT
--- NOTE | 2022-03-08 13:30 | NUR ---
RN NOTES: PT IS OK NO VOMITING NOTES, RESUMED FEEDING, RESIDUAL 0 TITRATE FEEDING TO 40 ML/HR, MD DR RODRIGUEZ AT BEDSIDE AWARE
[2022-03-08 16:00] VITALS: BP 150/74
[2022-03-08] MEDS: VANCOMYCIN 1.25 GM in IV D5W 250 ML IV SCH (16:08)
--- NOTE | 2022-03-08 19:15 | NUR ---
RN NOTES RECEIVED PATIENT IN BED SLEEPING, NON VERBAL. RESPONSIVE TO TOUCH AND VOICE, OPENS EYES. PT ON O2 NC 3LPM TOLERATING WELL WITH SATURATION OF 97%. BREATHING EVEN AND UNLABORED. WITH NO SIGNS OF SOB OR ACUTE DISTRESS NOTED AT THIS TIME. IV ACCESS NOTED AT GERRY MIDLINE WITH NO SIGNS OF INFILTRATION. ON G TUBE FEEDING, GLUCERNA AT 40ML/HR AND TOLERATING WELL, NO RESIDUAL NOTED AND POSITIVE PLACEMENT NOTED. WITH FRANCISCO CATHETER CONNECTED TO URINE BAG DRAINING YELLOWISH URINE OUTPUT. ALL SAFETY MEASURES IN PLACE, CALL LIGHT WITHIN REACH. BED LOCKED IN LOWEST POSITION, ALARM ON.
--- NOTE | 2022-03-08 19:35 | NUR ---
CLEANER OPERATOR CLOSING NOTE PATIENT IN BED SLEEPING, NON VERBAL. RESPONSIVE TO TOUCH AND VOICE, OPENS EYES. PT ON O2 NC 3LPM TOLERATING WELL WITH SATURATION OF 97%. BREATHING EVEN AND UNLABORED.ON TELEMONITORING CURRENTLY READING SR AT 90'S, IV ACCESS AT GERRY MIDLINE, LEFT AC 18 GAUGE, NO SIGNS OF INFILTRATION. ON G TUBE FEEDING, GLUCERNA AT 30ML/HR AND TOLERATING WELL, NO RESIDUAL NOTED AND POSITIVE PLACEMENT NOTED.ALL DUE MEDS GIVEN KEPT DRY AND CLEAN, ALL SAFETY MEASURES IN PLACE, CALL LIGHT WITHIN REACH. BED LOCKED IN LOWEST POSITION, ALARM ON. WILL ENDORSE TO ONCOMING SHIFT NURSE.
[2022-03-08 20:00] VITALS: BP 150/74
[2022-03-09] VITALS: BP 149/65
[2022-03-09 04:00] VITALS: BP 143/56
[2022-03-09] MEDS: hydrALAZINE HCL 50 MG TABLET PO SCH ×3 (05:34→21:38)
[2022-03-09] MEDS: ENOXAPARIN SODIUM 40 MG/0.4 ML DISP.SYRIN SQ SCH (05:38)
--- NOTE | 2022-03-09 07:08 | NUR ---
RN NOTES PATIENT IN BED SLEEPING, NON VERBAL. RESPONSIVE TO TOUCH AND VOICE, OPENS EYES. PT ON O2 NC 3LPM TOLERATING WELL WITH SATURATION OF 97%. BREATHING EVEN AND UNLABORED.ON TELEMONITORING CURRENTLY READING SR AT 90'S, IV ACCESS AT GERRY MIDLINE, LEFT AC 18 GAUGE, NO SIGNS OF INFILTRATION. ON G TUBE FEEDING, GLUCERNA AT 40ML/HR AND TOLERATING WELL, NO RESIDUAL NOTED AND POSITIVE PLACEMENT NOTED. FRANCISCO CATHETER PATENT DRAINING YELLOWISH URINE OUTPUT.ALL DUE MEDS GIVEN KEPT DRY AND CLEAN, ALL SAFETY MEASURES IN PLACE, CALL LIGHT WITHIN REACH. BED LOCKED IN LOWEST POSITION, ALARM ON. WILL ENDORSE TO ONCOMING SHIFT FOR KIYA
[2022-03-09 07:20] LABS: CALCIUM, SERUM 9.3 mg/dL (8.5-10.1); CARBON DIOXIDE 26 mmol/L (21-32); CHLORIDE 111 mmol/L (98-107); CREATININE 1.5 mg/dL (0.6-1.3); GLUCOSE 190 mg/dL (74-106); POTASSIUM 3.7 mmol/L (3.5-5.1); SODIUM SERUM 145 mmol/L (136-145); UREA NITROGEN, BLOOD 47 mg/dL (7-18)
[2022-03-09] MEDS: BLOOD SUGAR DIAGNOSTIC 1 EACH STRIP IN SCH ×4 (07:49→23:06)
[2022-03-09] MEDS: INSULIN REGULAR, HUMAN 100 UNIT/ML 3 ML VIAL SQ PRN ×4 (07:50→21:43)
[2022-03-09 08:00] VITALS: BP 132/62
[2022-03-09] MEDS: PROSOURCE / PROSTAT (PYXIS) 30 ML UDC GT SCH ×3 (09:20→16:36)
[2022-03-09] MEDS: NITROGLYCERIN 30 GM TUBE TP SCH ×2 (09:20→21:39)
[2022-03-09] MEDS: DAKINS QUARTER STRENGTH (0.125%) 480 ML BOTTLE TOP SCH (09:21)
[2022-03-09] MEDS: Z GUARD REMEDY 4 OZ OINT TP SCH (09:22)
[2022-03-09 12:00] VITALS: BP 138/66
[2022-03-09] MEDS: GLUCERNA 1.2 1,000 ML BOTTLE NG PRN (12:11)
--- NOTE | 2022-03-09 13:00 | NUR ---
RN NOTE BP RE CHECKED 143/79 PATIENT DENIALS ANY PAIN , NAUSEA OR DISCOMFORT AT THIS TIME
[2022-03-09 16:00] VITALS: BP 143/59
--- NOTE | 2022-03-09 19:10 | NUR ---
RN NOTES RECEIVED PATIENT IN BED SLEEPING, NON VERBAL. RESPONSIVE TO TOUCH AND VOICE, OPENS EYES. PT ON O2 NC 3LPM TOLERATING WELL WITH SATURATION OF 97%. BREATHING EVEN AND UNLABORED. WITH NO SIGNS OF SOB OR ACUTE DISTRESS NOTED AT THIS TIME. IV ACCESS NOTED AT GERRY MIDLINE WITH NO SIGNS OF INFILTRATION. ON G TUBE FEEDING, GLUCERNA AT 60 ML/HR AND TOLERATING WELL, NO RESIDUAL NOTED AND POSITIVE PLACEMENT NOTED. WITH FRANCISCO CATHETER CONNECTED TO URINE BAG DRAINING YELLOWISH URINE OUTPUT. ALL SAFETY MEASURES IN PLACE, CALL LIGHT WITHIN REACH. BED LOCKED IN LOWEST POSITION, ALARM ON.
--- NOTE | 2022-03-09 19:25 | NUR ---
SUBCONTRACT MANAGER CLOSING NOTE PATIENT IN BED SLEEPING, NON VERBAL. RESPONSIVE TO TOUCH AND VOICE, OPENS EYES. PT ON O2 NC 3LPM TOLERATING WELL WITH SATURATION OF 97%. BREATHING EVEN AND UNLABORED.ON TELEMONITORING CURRENTLY READING SR AT 90'S, IV ACCESS AT GERRY MIDLINE, LEFT AC 18 GAUGE, NO SIGNS OF INFILTRATION. ON G TUBE FEEDING, GLUCERNA AT 50ML/HR AND TOLERATING WELL, NO RESIDUAL NOTED AND POSITIVE PLACEMENT NOTED.ALL DUE MEDS GIVEN KEPT DRY AND CLEAN, ALL SAFETY MEASURES IN PLACE, CALL LIGHT WITHIN REACH. BED LOCKED IN LOWEST POSITION, ALARM ON. WILL ENDORSE TO ONCOMING SHIFT NURS
[2022-03-09 20:00] VITALS: BP 143/76
[2022-03-10] VITALS: BP 116/60
[2022-03-10 04:00] VITALS: BP 105/65
[2022-03-10] MEDS: hydrALAZINE HCL 50 MG TABLET PO SCH ×3 (05:00→20:33)
[2022-03-10] MEDS: ENOXAPARIN SODIUM 40 MG/0.4 ML DISP.SYRIN SQ SCH (06:19)
--- NOTE | 2022-03-10 06:41 | NUR ---
RN NOTES PATIENT IN BED SLEEPING, NON VERBAL. RESPONSIVE TO TOUCH AND VOICE, OPENS EYES. PT ON O2 NC 3LPM TOLERATING WELL WITH SATURATION OF 97%. BREATHING EVEN AND UNLABORED.ON TELEMONITORING CURRENTLY READING SR AT 90'S, IV ACCESS AT GERRY MIDLINE, LEFT AC 18 GAUGE, NO SIGNS OF INFILTRATION. ON G TUBE FEEDING, GLUCERNA AT 70 ML/HR AND TOLERATING WELL, NO RESIDUAL NOTED AND POSITIVE PLACEMENT NOTED. FRANCISCO CATHETER PATENT DRAINING YELLOWISH URINE OUTPUT.ALL DUE MEDS GIVEN KEPT DRY AND CLEAN, ALL SAFETY MEASURES IN PLACE, CALL LIGHT WITHIN REACH. BED LOCKED IN LOWEST POSITION, ALARM ON. WILL ENDORSE TO ONCOMING SHIFT FOR
[2022-03-10 06:44] LABS: BASOPHILS % (AUTO) 0.3 % (0.0-2.0); EOSINOPHILS % (AUTO) 2.8 % (0.0-6.0); HEMATOCRIT 25 % (33-45); HEMOGLOBIN 8.2 g/dL (11.5-14.8); LYMPHOCYTES # (AUTO) 1.5 K/uL (0.8-4.8); LYMPHOCYTES % (AUTO) 16.1 % (20.0-44.0); MEAN CORPUSCULAR HGB CONC 33 g/dl (31.0-36.0); MEAN CORPUSCULAR VOLUME 92 fL (82-100); MONOCYTES # (AUTO) 0.8 K/uL (0.1-1.30); MONOCYTES % (AUTO) 8.7 % (2.0-12.0); NEUTROPHILS # (AUTO) 6.7 K/uL (1.8-8.9); NEUTROPHILS % (AUTO) 72.1 % (43.0-81.0); PLATELET COUNT (AUTO) 497 K/uL (150-450); RED BLOOD CELL COUNT(AUTO) 2.69 MIL/uL (4.0-5.2); WHITE BLOOD COUNT (AUTO) 9.3 K/uL (4.3-11.0)
[2022-03-10 06:57] LABS: CALCIUM, SERUM 9.1 mg/dL (8.5-10.1); CARBON DIOXIDE 29 mmol/L (21-32); CHLORIDE 111 mmol/L (98-107); CREATININE 1.5 mg/dL (0.6-1.3); GLUCOSE 225 mg/dL (74-106); SODIUM SERUM 148 mmol/L (136-145); UREA NITROGEN, BLOOD 52 mg/dL (7-18)
--- NOTE | 2022-03-10 07:30 | NUR ---
RN OPENING NOTE PATIENT IS IN BED, ASLEEP, BUT RESPONSIVE TO TOUCH AND VOICE. NON-VERBAL. WITH O2 VIA NASAL CANNULA AT 3L/MIN, O2 SATURATION AT 98%. WITH FRANCISCO CATHETER DRAINING TO YELLOW COLORED URINE. WITH G-TUBE INFUSING WITH GLUCERNA AT 70 ML/HR. WITH LEFT UPPER ARM MIDLINE GAUGE 18 LOCK, INTACT AND PATENT. NOT IN ANY FORM OF DISTRESS. BED IS LOCKED IN LOWEST POSITION, 3 SIDE RAILS UP, CALL LIGHT WITHIN REACH. WILL CONTINUE TO MONITOR THROUGHOUT SHIFT.
[2022-03-10] MEDS: BLOOD SUGAR DIAGNOSTIC 1 EACH STRIP IN SCH ×4 (07:54→22:15)
[2022-03-10 08:00] VITALS: BP 155/78
[2022-03-10] MEDS: INSULIN REGULAR, HUMAN 100 UNIT/ML 3 ML VIAL SQ PRN ×4 (08:33→22:17)
[2022-03-10] MEDS: PROSOURCE / PROSTAT (PYXIS) 30 ML UDC GT SCH ×3 (08:36→16:12)
[2022-03-10] MEDS: DAKINS QUARTER STRENGTH (0.125%) 480 ML BOTTLE TOP SCH (09:00)
[2022-03-10] MEDS: Z GUARD REMEDY 4 OZ OINT TP SCH (09:00)
[2022-03-10] MEDS: NITROGLYCERIN 30 GM TUBE TP SCH (10:17)
[2022-03-10] MEDS: GLUCERNA 1.2 1,000 ML BOTTLE NG PRN (10:56)
[2022-03-10 12:00] VITALS: BP 152/74
[2022-03-10 16:00] VITALS: BP 151/67
[2022-03-10] MEDS ORDERED: VANCOMYCIN HCL 0.75 GM in IV D5W 250 ML IV SCH (16:00)
[2022-03-10] MEDS: APIXABAN 2.5 MG TABLET GT SCH (17:54)
--- NOTE | 2022-03-10 19:38 | NUR ---
RN CLOSING NOTE PATIENT IS NOT IN DISTRESS AT THIS TIME AND REMAINED STABLE THROUGHOUT SHIFT. 02 SATURATION AT 98% AND NOT IN ANY FORM OF RESPIRATORY DISTRESS. ALL HOSPITAL PRECAUTIONS IN PLACE. WILL ENDORSE TO CARPET JACK NURSE.
[2022-03-10] MEDS: ACETAMINOPHEN 325 MG TABLET PO PRN (19:48)
[2022-03-10 20:00] VITALS: BP 187/85
--- NOTE | 2022-03-10 20:40 | NUR ---
ENDORSED PATIENT TO RAYMUNDO SUAREZ FOR CONTINUATION OF CARE, PATIENT WITH BODY TEMP 100.6 EARLIER AND BLOOD PRESSURE IN 180S, COOLING MEASURES ADMINISTERED WELL TYLENOL AND SCHEDULED HYDRALAZINE, NO SOB/ACUTE DISTRESS NOTED.
--- NOTE | 2022-03-10 22:00 | NUR ---
RN NOTE BS CHECKED AT 233 MG/DL, 4 UNITS OF INSULIN GIVEN PER SLIDING SCALE. ALL DUE MEDS GIVEN, WILL CONT TO MONITOR THROUGHOUT THE SHIFT.
[2022-03-11] VITALS: BP 187/93
[2022-03-11] MEDS: GLUCERNA 1.2 1,000 ML BOTTLE NG PRN ×2 (02:21→16:57)
[2022-03-11 04:00] VITALS: BP 118/59
[2022-03-11] MEDS: hydrALAZINE HCL 50 MG TABLET PO SCH ×3 (04:15→21:11)
--- NOTE | 2022-03-11 06:30 | NUR ---
RESTAURANT MGR CLOSING NOTE PATIENT IN BED SLEEPING BUT EASILY AROUSABLE TO TOUCH AND VOICE, ON O2 VIA NC AT 3L, TOLERATING WELL, CURRENTLY SATING AT 97%.STILL ON GT FEEDING AT 75 ML/HR, TOLERATING WELL, ON TELEMONITORING CURRENTLY READING SR AT 88 BPM, ALL DUE MEDS GIVEN, KEPT DRY AND CLEAN, ALL HOSPITAL PRECAUTIONS IN PLACE. CALL LIGHT WITHIN REACH, BED IN LOWEST AND LOCKED POSITION, WILL ENDORSE TO DAY SHIFT NURSE.
[2022-03-11 06:32] LABS: BASOPHILS % (AUTO) 0.2 % (0.0-2.0); EOSINOPHILS % (AUTO) 3.1 % (0.0-6.0); HEMATOCRIT 24 % (33-45); LYMPHOCYTES # (AUTO) 1.7 K/uL (0.8-4.8); LYMPHOCYTES % (AUTO) 17.8 % (20.0-44.0); MEAN CORPUSCULAR HGB CONC 33 g/dl (31.0-36.0); MEAN CORPUSCULAR VOLUME 92 fL (82-100); MONOCYTES # (AUTO) 0.9 K/uL (0.1-1.30); MONOCYTES % (AUTO) 9.4 % (2.0-12.0); NEUTROPHILS # (AUTO) 6.6 K/uL (1.8-8.9); NEUTROPHILS % (AUTO) 69.5 % (43.0-81.0); PLATELET COUNT (AUTO) 481 K/uL (150-450); RED BLOOD CELL COUNT(AUTO) 2.64 MIL/uL (4.0-5.2); WHITE BLOOD COUNT (AUTO) 9.5 K/uL (4.3-11.0)
[2022-03-11 07:11] LABS: CALCIUM, SERUM 9.2 mg/dL (8.5-10.1); CARBON DIOXIDE 29 mmol/L (21-32); CHLORIDE 111 mmol/L (98-107); CREATININE 1.5 mg/dL (0.6-1.3); GLUCOSE 227 mg/dL (74-106); SODIUM SERUM 148 mmol/L (136-145); UREA NITROGEN, BLOOD 56 mg/dL (7-18)
--- NOTE | 2022-03-11 07:30 | NUR ---
RN OPENING NOTE PATIENT IN BED ASLEEP BUT EASILY AROUSABLE TO TOUCH AND VOICE. WITH OXYGEN VIA NASAL CANNULA AT 3L/MIN. OXYGEN SATURATION AT 97%. CONTROLLED ATRIAL FIBRILLATION ON PHYSICIAN PRACTICE MARKET MANAGER. WITH G-TUBE INFUSING WITH GLUCERNA 75 ML/HR. WITH LEFT UPPER ARM MIDLINE SALINE LOCK INTACT AND PATENT. PATIENT IS IN NO FORM OF DISTRESS. BED IS LOCKED IN THE LOWEST POSITION, 3 SIDE RAILS UP, CALL LIGHT WITHIN REACH. WILL CONTINUE TO MONITOR THROUGHOUT SHIFT.
[2022-03-11 08:00] VITALS: BP 141/52
[2022-03-11] MEDS: Z GUARD REMEDY 4 OZ OINT TP SCH (09:00)
[2022-03-11] MEDS: DAKINS QUARTER STRENGTH (0.125%) 480 ML BOTTLE TOP SCH (09:00)
[2022-03-11] MEDS: BLOOD SUGAR DIAGNOSTIC 1 EACH STRIP IN SCH ×4 (09:13→21:51)
[2022-03-11] MEDS: APIXABAN 2.5 MG TABLET GT SCH ×2 (10:05→18:15)
[2022-03-11] MEDS: PROSOURCE / PROSTAT (PYXIS) 30 ML UDC GT SCH ×3 (10:06→18:18)
[2022-03-11 12:00] VITALS: BP 119/59
[2022-03-11] MEDS: INSULIN REGULAR, HUMAN 100 UNIT/ML 3 ML VIAL SQ PRN ×3 (12:15→21:44)
--- NOTE | 2022-03-11 15:37 | NUR ---
RN NOTE VANCOMYCIN TROUGH LEVEL AT 27. PHARMACY INFORMED.
[2022-03-11 16:00] VITALS: BP 105/57
--- NOTE | 2022-03-11 16:00 | NUR ---
RN NOTE EPISODE OF FEVER AT 99.8F, SKIN WARM TO TOUCH, HR AT 130S. TYLENOL PRN FOR FEVER GIVEN ORDERED. COOLING MEASURES GIVEN. WILL CONTINUE TO MONITOR.
[2022-03-11] MEDS: ACETAMINOPHEN 325 MG TABLET PO PRN (16:08)
--- NOTE | 2022-03-11 17:00 | NUR ---
RN NOTE TEMPERATURE RECHECKED, AFEBRILE AT 97.8F. HR AT 105 BPM. WILL CONTINUE TO MONITOR.
--- NOTE | 2022-03-11 19:21 | NUR ---
RN CLOSING NOTE PATIENT IS IN BED, ON SEMI OLMEDO'S POSITION. WITH O2 VIA NASAL CANNULA AT 2L/MIN. O2 SATURATION AT 97%. NOT IN ANY FORM OF DISTRESS. PATIENT IS AFEBRILE AND REMAINED STABLE THROUGHOUT THE SHIFT. BED IS LOCKED IN LOWEST POSITION, 3 SIDE RAILS UP, CALL LIGHT WITHIN REACH. WILL ENDORSE TO CASEWORK MANAGER NURSE.
--- NOTE | 2022-03-11 19:34 | NUR ---
TUBE SIZER AND CUTTER OPERATOR OPENING NOTE RECEIVED PATIENT IN BED SLEEPING, NON VERBAL. RESPONSIVE TO TOUCH AND VOICE, OPENS EYES. PT ON O2 NC 3LPM TOLERATING WELL WITH SATURATION OF 97%. BREATHING EVEN AND UNLABORED. WITH NO SIGNS OF SOB OR ACUTE DISTRESS NOTED AT THIS TIME. IV ACCESS NOTED AT GERRY MIDLINE, NO SIGNS OF INFILTRATION. ON G TUBE FEEDING, GLUCERNA AT 75ML/HR AND TOLERATING WELL, NO RESIDUAL NOTED AND POSITIVE PLACEMENT NOTED. ALL SAFETY MEASURES IN PLACE, CALL LIGHT WITHIN REACH. BED LOCKED IN LOWEST POSITION, ALARM ON. WILL CONTINUE TO MONITOR THROUGH OUT THE SHIFT.
[2022-03-11 20:00] VITALS: BP 145/78
--- NOTE | 2022-03-11 22:00 | NUR ---
RN NOTE BS CHECKED AT 241MG/DL, 4 UNITS OF INSULIN GIVEN PER SLIDING SCALE. WILL CONT TO MONITOR.
[2022-03-12] VITALS: BP 165/82
[2022-03-12 04:00] VITALS: BP 162/85
[2022-03-12] MEDS: hydrALAZINE HCL 50 MG TABLET PO SCH ×3 (05:32→21:00)
[2022-03-12] MEDS: GLUCERNA 1.2 1,000 ML BOTTLE NG PRN (06:45)
--- NOTE | 2022-03-12 06:54 | NUR ---
FENCE SUPERVISOR CLOSING NOTE NO SIGNIFICANT CHANGES THROUGHOUT THE SHIFT, PATIENT IN BED SLEEPING BUT EASILY AROUSABLE TO TOUCH AND VOICE, ON O2 VIA NC AT 3L, TOLERATING WELL, CURRENTLY SATING AT 97%.STILL ON GT FEEDING AT 75 ML/HR, TOLERATING WELL, ON TELEMONITORING CURRENTLY READING SR-AFIB AT 109 BPM, ALL DUE MEDS GIVEN, KEPT DRY AND CLEAN, ALL HOSPITAL PRECAUTIONS IN PLACE. CALL LIGHT WITHIN REACH, BED IN LOWEST AND LOCKED POSITION, WILL ENDORSE TO DAY SHIFT NURSE.
[2022-03-12 07:11] LABS: CALCIUM, SERUM 9.1 mg/dL (8.5-10.1); CARBON DIOXIDE 28 mmol/L (21-32); CHLORIDE 111 mmol/L (98-107); CREATININE 1.4 mg/dL (0.6-1.3); GLUCOSE 305 mg/dL (74-106); POTASSIUM 4.3 mmol/L (3.5-5.1); SODIUM SERUM 147 mmol/L (136-145); UREA NITROGEN, BLOOD 62 mg/dL (7-18)
[2022-03-12] MEDS: BLOOD SUGAR DIAGNOSTIC 1 EACH STRIP IN SCH ×4 (07:30→21:53)
[2022-03-12 07:41] LABS: BASOPHILS % (AUTO) 0.2 % (0.0-2.0); EOSINOPHILS % (AUTO) 1.6 % (0.0-6.0); HEMATOCRIT 25 % (33-45); HEMOGLOBIN 7.9 g/dL (11.5-14.8); LYMPHOCYTES # (AUTO) 1.8 K/uL (0.8-4.8); LYMPHOCYTES % (AUTO) 17.8 % (20.0-44.0); MEAN CORPUSCULAR HGB CONC 32 g/dl (31.0-36.0); MEAN CORPUSCULAR VOLUME 93 fL (82-100); MONOCYTES % (AUTO) 9.3 % (2.0-12.0); NEUTROPHILS # (AUTO) 7.3 K/uL (1.8-8.9); NEUTROPHILS % (AUTO) 71.1 % (43.0-81.0); PLATELET COUNT (AUTO) 492 K/uL (150-450); RED BLOOD CELL COUNT(AUTO) 2.67 MIL/uL (4.0-5.2); WHITE BLOOD COUNT (AUTO) 10.3 K/uL (4.3-11.0)
[2022-03-12 08:00] VITALS: BP 159/73
[2022-03-12] MEDS: INSULIN REGULAR, HUMAN 100 UNIT/ML 3 ML VIAL SQ PRN ×3 (08:56→22:04)
[2022-03-12] MEDS: PROSOURCE / PROSTAT (PYXIS) 30 ML UDC GT SCH ×3 (10:05→17:12)
[2022-03-12] MEDS: APIXABAN 2.5 MG TABLET GT SCH ×2 (10:06→17:14)
[2022-03-12] MEDS: Z GUARD REMEDY 4 OZ OINT TP SCH (10:09)
[2022-03-12] MEDS: DAKINS QUARTER STRENGTH (0.125%) 480 ML BOTTLE TOP SCH (10:10)
[2022-03-12] MEDS ORDERED: VANC1VIA34 XX (10:58)
[2022-03-12 12:00] VITALS: BP 153/69
[2022-03-12 16:00] VITALS: BP 190/95
[2022-03-12] MEDS ORDERED: VANCOMYCIN 500 MG in IV D5W 100ml IV SCH (16:00)
[2022-03-12] MEDS ORDERED: DILTIAZEM HCL 25 MG IV IV ONE (16:30)
[2022-03-12] MEDS ORDERED: DILTIAZEM HCL CD 240 MG PO SCH (17:00)
[2022-03-12] MEDS ORDERED: CLONIDINE HCL 0.1 MG TABLET PEG ONE (19:00)
[2022-03-12] MEDS ORDERED: hydrALAZINE HCL IV 20 MG VIAL IV ONE (19:30)
--- NOTE | 2022-03-12 19:59 | NUR ---
AUTOMATION QA ANALYST OPENING NOTE PATIENT IN BED SLEEPING BUT EASILY AROUSABLE TO TOUCH AND VOICE, ON O2 VIA NC AT 3L, TOLERATING WELL, CURRENTLY SATING AT 97%.STILL ON GT FEEDING AT 75 ML/HR, TOLERATING WELL, PT TO BE D/C TONIGHT IF SBP<160 PER MD. ONE TIME ORDER OF HYDRALAZINE GIVEN PT SBP IS >160 WILL REASSESS BP.
[2022-03-12 20:00] VITALS: BP 164/71
--- NOTE | 2022-03-12 20:00 | NUR ---
PATIENT CONTINUE WITH HIGH BLOOD PRESSURE 170/67, CALLED MD TO INFORMED HIM, LEFT MESSAGE, WILL CONTINUE TO MONITOR AND WILL ADMINISTER MEDICATIONS ORDERED.
--- NOTE | 2022-03-12 20:06 | NUR ---
RN NOTE PT BP NOTED 190/90 PRIOR TO D/C. MD MADE AWARE. T.O TO GIVE 1 DOSE CLONIDINE 0.1MG ONCE. ORDER CARRIED OUT AND MEDS GIVEN. WILL CONTINUE TO MONITOR.
--- NOTE | 2022-03-12 22:00 | NUR ---
RN NOTES PT BLOOD PRESSURE HAS NOW GONE DOWN. CALLED AMBULANCE FOR [facility] PER AMBULANCE THEY DO NOT HAVE ANY AMBULANCES AVAILABLE TONIGHT FOR [facility] CHARGE NURSE AWARE. MADE AWARE. PER [facility] WILL HAVE AMBULANCE AVAILABLE IN THE AM. [facility] SET UP FOR THE EARLIEST TIME FOR [facility] 8:30 AM. CHARGE NURSE WILL GIVE RE[PORT TO FACILITY IN THE AM.
--- NOTE | 2022-03-12 22:30 | NUR ---
CALLED [facility] AND INFORMED DEVI RN THAT PATIENT EDUCATION DIAGNOSTICIAN SCHEDULE IS FOR TOMORROW AT 0830, AND PER DEVI TO CALLED FACILITY BEFORE TRANSFER PATIENT, WILL ENDORSE TO NEXT SHIFT, ALSO ATTEMPT TO CALL PRAMOD STINSON AT [phone] TO INFORM HIM ABOUT SITUATION AND PT WILL BE TRANSFER TILL THE MORNING, BUT UNABLE TO CONTACT HIM, WILL TRY AGAIN IN AM.
--- NOTE | 2022-03-12 22:40 | NUR ---
[facility] UNABLE TO FINANCIAL ADVISOR PATIENT ANYMORE UNTIL 0830 IN AM.
[2022-03-13] VITALS: BP 158/75
[2022-03-13 04:00] VITALS: BP 156/79
[2022-03-13] MEDS: hydrALAZINE HCL 50 MG TABLET PO SCH (06:12)
--- NOTE | 2022-03-13 07:30 | NUR ---
FILENET ARCHITECT OPENING NOTE RECEIVED PATIENT IN BED SLEEPING, NON VERBAL. RESPONSIVE TO VERBAL AND TACTILE STIMULI, OPENS EYES. ON O2 @3LPM VIA N/C, NO SOB NOTED, SPO2 @100%. BREATHING EVEN AND UNLABORED. WITH NO SIGNS ACUTE DISTRESS NOTED AT THIS TIME. IV ACCESS NOTED AT GERRY MIDLINE, NO SIGNS OF INFILTRATION. WITH G-TUBE IN PLACE, ON G TUBE FEEDING, GLUCERNA AT 75ML/HR AND TOLERATING WELL, NO RESIDUAL NOTED. ASPIRATION AND SAFETY MEASURES IN PLACE, HOB ELEVATED, CALL LIGHT WITHIN REACH. BED LOCKED IN LOWEST POSITION, ALARM ON. WILL CONTINUE TO MONITOR PATIENT.
[2022-03-13 07:34] LABS: BASOPHILS % (AUTO) 0.3 % (0.0-2.0); EOSINOPHILS % (AUTO) 2.9 % (0.0-6.0); HEMATOCRIT 24 % (33-45); HEMOGLOBIN 7.7 g/dL (11.5-14.8); LYMPHOCYTES # (AUTO) 1.2 K/uL (0.8-4.8); MEAN CORPUSCULAR HGB CONC 32 g/dl (31.0-36.0); MEAN CORPUSCULAR VOLUME 93 fL (82-100); MONOCYTES # (AUTO) 0.8 K/uL (0.1-1.30); MONOCYTES % (AUTO) 9.3 % (2.0-12.0); NEUTROPHILS # (AUTO) 6.7 K/uL (1.8-8.9); NEUTROPHILS % (AUTO) 74.5 % (43.0-81.0); PLATELET COUNT (AUTO) 443 K/uL (150-450)
[2022-03-13] MEDS: BLOOD SUGAR DIAGNOSTIC 1 EACH STRIP IN SCH (07:43)
[2022-03-13 07:55] LABS: CALCIUM, SERUM 9.1 mg/dL (8.5-10.1); CARBON DIOXIDE 27 mmol/L (21-32); CHLORIDE 114 mmol/L (98-107); CREATININE 1.4 mg/dL (0.6-1.3); GLUCOSE 302 mg/dL (74-106); POTASSIUM 4.3 mmol/L (3.5-5.1); SODIUM SERUM 150 mmol/L (136-145); UREA NITROGEN, BLOOD 66 mg/dL (7-18)
[2022-03-13] MEDS: INSULIN REGULAR, HUMAN 100 UNIT/ML 3 ML VIAL SQ PRN (07:57)
[2022-03-13] MEDS ORDERED: METOPROLOL TARTRATE 50 MG TABLET GT SCH (08:10)
[2022-03-13 08:16] VITALS: BP 142/57
[2022-03-13] MEDS: PROSOURCE / PROSTAT (PYXIS) 30 ML UDC GT SCH (08:16)
[2022-03-13] MEDS: DAKINS QUARTER STRENGTH (0.125%) 480 ML BOTTLE TOP SCH (08:17)
[2022-03-13] MEDS: Z GUARD REMEDY 4 OZ OINT TP SCH (08:18)
[2022-03-13] MEDS: APIXABAN 2.5 MG TABLET GT SCH (09:00)
--- NOTE | 2022-03-13 09:15 | NUR ---
RN NOTES PATIENT DISCHARGED TO [facility] IN STABLE CONDITION. VITAL ISGNS TAKEN, STABLE AND RECORDED. REPORT GIVEN TO ERICK LAY BY ALDEN THAKUR. F/C REMOVED. DIMAS MIDLINE KEPT FOR CONTINUATION OF IV ABX. EXITCARE FOLDER GIVEN TO EMT STAFF. PATIENT LEFT UNIT @0900 P/U BY [facility].
== END 2022-03-13 09:00 | DRG 853 ==
LOC: ER 01:26 → TELE1 05:10 → TELE-TD 06:04 → TELE1 03-05 09:11
PROVIDERS: ADMIT Legal Medicine; ATTEND Legal Medicine
PROC: 05H633Z Insertion of Infusion Device into Left Subclavian Vein, Percutaneous Approach (ICD-10-PCS; 2022-03-04)
PROC: B547ZZA Ultrasonography of Left Subclavian Vein, Guidance (ICD-10-PCS; 2022-03-04)
PROC: 0KBP0ZZ Excision of Left Hip Muscle, Open Approach (ICD-10-PCS; principal; 2022-03-06)
PROC: 0KBN0ZZ Excision of Right Hip Muscle, Open Approach (ICD-10-PCS; 2022-03-06)
DX: A41.9 Sepsis, unspecified organism (principal); L89.324 Pressure ulcer of left buttock, stage 4; L89.314 Pressure ulcer of right buttock, stage 4; L89.154 Pressure ulcer of sacral region, stage 4; J18.9 Pneumonia, unspecified organism; J96.91 Respiratory failure, unspecified with hypoxia; G92.8 Other toxic encephalopathy; N39.0 Urinary tract infection, site not specified; N17.9 Acute kidney failure, unspecified; E87.2 Acidosis; R47.01 Aphasia; I48.91 Unspecified atrial fibrillation; E03.9 Hypothyroidism, unspecified; E78.5 Hyperlipidemia, unspecified; E86.0 Dehydration; R13.10 Dysphagia, unspecified; I10 Essential (primary) hypertension; E11.65 Type 2 diabetes mellitus with hyperglycemia; B95.2 Enterococcus as the cause of diseases classified elsewhere; D64.9 Anemia, unspecified; Z79.4 Long term (current) use of insulin; I69.898 Other sequelae of other cerebrovascular disease
CPT/HCPCS: 36410; 36415; 71045-TC; 80048-TC; 80053-TC; 80061-TC; 80076-TC; 80202-TC; 81001; 82728-TC; 82962-TC; 83540-TC; 83605-TC; 83735-TC; 84100-TC; 84439-TC; 84443-TC; 84484-TC; 85025-TC; 85730-TC; 87040-TC; 87081-TC; 87086-TC; 87186-TC; 93307-TC; A6253; A6403; C9803; G0378; J0360; J0696; J1160; J1650; J1815; J1940; J2405; J2543; J3370; J3490; J7030; J7050; J7060